=== PATIENT | male | born 1955 | race Caucasian/White ===

== ENCOUNTER 2017-08-14 17:23 | Emergency (ER) | payer MEDICARE, OTHER ==
[~2017-08-14] VITALS: Ht 182.9 cm; Wt 109.3 kg
[2017-08-14 17:31] VITALS: BP 160/111
--- NOTE | 2017-08-14 17:44 | NUR ---
PT WHEEL CHAIR ASSISTED BACK TO THE LOBBY
--- NOTE | 2017-08-14 18:30 | NUR ---
62/M BIB SELF C/O CHRONIC BL LEG WOUND & REDNESS, SWELLING & PAIN 10/10 APROXIMATELY 3 MONTHS WORSE THE LAST 6 DAYS .HX; HTN, STROKE, RT EYE PROSTHESIS, BACK SURGERY, APPENDECTOMY .RX; "6 MEDS CAN'T REMEMBER" DENIES N/V/D; SKIN IS PINK/WARM/DRY; AAOX4 WITH EVEN AND STEADY GAIT; LUNGS CLEAR BL; PATIENT STATES PAIN OF 10/10 AT THIS TIME; PATIENT POSITIONED FOR COMFORT; HOB ELEVATED; BEDRAILS UP X2; BED DOWN. ER MD MADE AWARE OF PT STATUS.
--- NOTE | 2017-08-14 19:15 | NUR ---
Pt report given to BROOKLYN COWART. Transfer of care at this time.
[2017-08-14] MEDS ORDERED: NACL 0.9% 1,000 ML IV ONE (19:55)
[2017-08-14] MEDS ORDERED: VANCOMYCIN 1,000 MG in DEXTROSE 5% 250 ML IV ONE (19:55)
[2017-08-14] MEDS ORDERED: PIPERACILLIN/TAZOBACTAM 3.375 GM in DEXTROSE 5% 50 ML IV ONE (19:55)
[2017-08-14] MEDS ORDERED: PIPERACILLIN/TAZOBACTAM 3.375 GM VIAL IV ONE (20:02)
[2017-08-14] MEDS ORDERED: VANCOMYCIN 1,000 MG VIAL ONE (20:02)
[2017-08-14 20:31] LABS: BASOPHILS # (AUTO) 0.1 K/uL (0.00-0.22); BASOPHILS % (AUTO) 1.2 % (0.0-2.0); EOSINOPHILS # (AUTO) 0.3 K/uL (0-0.4); EOSINOPHILS % (AUTO) 2.4 % (0.0-4.0); HEMATOCRIT 44.7 % (36-52); HEMOGLOBIN 14.9 g/dL (12.0-18.0); LYMPHOCYTES # (AUTO) 2.3 K/uL (2.0-11.5); LYMPHOCYTES % (AUTO) 19.8 % (20.5-51.1); MEAN CORPUSCULAR HEMOGLOBIN 28 pg (27-31); MEAN CORPUSCULAR HGB CONC 33 g/dL (33-37); MEAN CORPUSCULAR VOLUME 83 fL (80-94); MONOCYTES # (AUTO) 0.9 K/uL (0.8-1.0); MONOCYTES % (AUTO) 7.9 % (1.7-9.3); NEUTROPHILS % (AUTO) 68.7 % (42.2-75.2); PLATELET COUNT (AUTO) 367 K/uL (140-450); RED BLOOD CELL COUNT(AUTO) 5.38 MIL/uL (4.20-6.10); RED CELL DISTRIBUTION WIDTH 13.2 % (11.6-13.7); WHITE BLOOD COUNT (AUTO) 11.6 K/uL (4.8-10.8)
[2017-08-14] MEDS ORDERED: hydrALAZINE 20 MG/ML VIAL IVP ONE (20:40)
[2017-08-14 20:46] LABS: ANION GAP 14.6 (8-16); CARBON DIOXIDE 29.9 mmol/L (21-32); CREATININE 1.4 mg/dL (0.7-1.3); POTASSIUM 3.5 mmol/L (3.5-5.1)
[2017-08-14 20:52] LABS: ALBUMIN 3.8 g/dL (3.4-5.0); TOTAL BILIRUBIN 0.3 mg/dL (0.0-1.0)
--- NOTE | 2017-08-14 21:00 | NUR ---
Patient appears to be resting comfortably in bed. Vital Signs within normal limits. Respirations even and unlabored.
--- NOTE | 2017-08-14 21:20 | NUR ---
PT GIVEN URINAL
--- NOTE | 2017-08-14 21:31 | NUR ---
RX; "6 MEDS CAN'T REMEMBER"
--- NOTE | 2017-08-14 21:50 | NUR ---
PT UNABLE TO VOID AT THIS TIME, ER MD PICKARD MADE AWARE. NO NEW ORDERS RECEIVED
[2017-08-14] MEDS ORDERED: ACETAMINOPHEN 325 MG TAB PO PRN (22:30)
[2017-08-14] MEDS ORDERED: ONDANSETRON 4 MG/2 ML VIAL IVP PRN (22:30)
[2017-08-14] MEDS ORDERED: LORazepam 2 MG/ML VIAL IVP PRN (22:30)
[2017-08-14] MEDS ORDERED: HYDROcodone/APAP 5/325 MG 1 TAB TAB PO PRN (22:30)
[2017-08-14] MEDS ORDERED: VANCOMYCIN PER PHARMACY MC PRN (22:30)
[2017-08-14] MEDS ORDERED: cloNIDine 0.1 MG TAB PO PRN (22:40)
--- NOTE | 2017-08-14 23:00 | NUR ---
Patient will be admitted to care of [facility]. Admited to MS . Will go to room 112A. Belongings list completed. BEDSIDE Report to GE BARAHONA. IV SL AND PATENT
--- NOTE | 2017-08-14 23:10 | NUR ---
PT ARRIVED ON THE UNIT FROM ER VIA GURNEY, PT AMBULATED TO THE BATHROOM THEN TO BED, TOLERATED WELL, RECEIVED REPORT FROM ER NURSE WOJCIECH RN, IV TO R AC 20G, INTACT, PATENT, PT ON ROOM AIR NO SOB, PT HAS BLE CELLULITIS, WITH ONE OPEN WOUND TO THE RIGHT AND TWO TO THE LEFT LEG, INITIAL ASSESSMENT DONE, ALL SAFETY PRECAUTION MET, WILL CONTINUE TO MONITOR.
[2017-08-14 23:30] VITALS: BP 137/88
[2017-08-14] MEDS: HYDROcodone/APAP 5/325 MG 1 TAB TAB PO PRN (23:49)
[2017-08-14] MEDS: NACL 0.9% 1,000 ML IV SCH (23:50)
--- NOTE | 2017-08-14 23:50 | NUR ---
NEW BAG OF 1L NS IV FLUID ADMINISTERED TO PT AT 75ML/HR, INFUSING WELL, PT C/O OF PAIN 01/30 ON BLE LEG, PAIN MEDICATION GIVEN, PT TOLERATED WELL, NO DISTRESS NOTED, CALL LIGHT WITHIN REACH, WILL CONTINUE TO MONITOR. Addendum: 08/15/17 at 0453 by Gracy Butt RN PAIN MEDICATION NORCO 2 TAB 5/325 PER MD ORDER GIVEN
--- NOTE | 2017-08-15 01:00 | NUR ---
SECURITY CAME TO COMMUTATOR TESTER PT KNIFE TO KEEP AT SECURITY AND CONFIRM PT BIKE IN FRONT OF ER.
[2017-08-15 01:33] LABS: APPEARANCE,URINE CLEAR (CLEAR); BILIRUBIN,URINE NEGATIVE (NEGATIVE); BLOOD, URINE NEGATIVE (NEGATIVE); COLOR,URINE YELLOW (YELLOW); LEUKOCYTE ESTERASE ,URINE NEGATIVE (NEGATIVE); NITRITE, URINE NEGATIVE (NEGATIVE); UGLUCOSE NEGATIVE (NEGATIVE)
--- NOTE | 2017-08-15 03:45 | NUR ---
PT AMBULATED TO BATHROOM AND BACK TO BED, TOLERATED WELL, PT STABLE, NO DISTRESS NOTED, CALL LIGHT WITHIN REACH, WILL CONTINUE TO MONITOR.
--- NOTE | 2017-08-15 04:22 | NUR ---
CALLED RADIOLOGY REGARDING PT STAT ORDER OF US BLE VENOUS AND ARTERY, TALKED TO [employer]ODU[employer] OFFICER, WAS TOLD THAT THE GEAR TECHNICIAN TALKED TO AND THE ORDER IS NOT STAT BUT ROUTINE, AND IT WILL BE DONE LATER ON DURING THE MORNING.
[2017-08-15] MEDS ORDERED: CLINDAMYCIN 600 MG/4 ML VIAL ONE (04:31)
[2017-08-15] MEDS: CLINDAMYCIN 300 MG in DEXTROSE 5% 50 ML IV SCH ×3 (04:48→20:37)
--- NOTE | 2017-08-15 04:48 | NUR ---
IVPB CLEOCIN 300MG IN 50ML NS (D5W 50ML BAG WAS NOT AVAILABLE AT THIS TIME) STARTED RUNNING @ 100ML/HR, PT TOLERATED WELL, NO DISTRESS NOTED, CALL LIGHT WITHIN REACH, WILL CONTINUE TO MONITOR.
--- NOTE | 2017-08-15 05:18 | NUR ---
IVPB FINISHED INFUSING, IVF CONTINUED INFUSING AT 75ML/HR. INFUSING WELL, PT SLEEPING, NO DISTRESS NOTED,CALL LIGHT WITHIN REACH.
[2017-08-15 05:54] LABS: BASOPHILS # (AUTO) 0.1 K/uL (0.00-0.22); BASOPHILS % (AUTO) 1.1 % (0.0-2.0); EOSINOPHILS # (AUTO) 0.3 K/uL (0-0.4); EOSINOPHILS % (AUTO) 2.6 % (0.0-4.0); HEMATOCRIT 38.5 % (36-52); LYMPHOCYTES # (AUTO) 2.4 K/uL (2.0-11.5); LYMPHOCYTES % (AUTO) 22.9 % (20.5-51.1); MEAN CORPUSCULAR HEMOGLOBIN 28 pg (27-31); MEAN CORPUSCULAR HGB CONC 34 g/dL (33-37); MEAN CORPUSCULAR VOLUME 84 fL (80-94); MONOCYTES % (AUTO) 9.9 % (1.7-9.3); NEUTROPHILS # (AUTO) 6.7 K/uL (1.8-7.7); NEUTROPHILS % (AUTO) 63.5 % (42.2-75.2); PLATELET COUNT (AUTO) 302 K/uL (140-450); RED BLOOD CELL COUNT(AUTO) 4.61 MIL/uL (4.20-6.10); RED CELL DISTRIBUTION WIDTH 13.2 % (11.6-13.7); WHITE BLOOD COUNT (AUTO) 10.5 K/uL (4.8-10.8)
[2017-08-15 06:30] LABS: ANION GAP 11.6 (8-16); CREATININE 1.2 mg/dL (0.7-1.3); POTASSIUM 3.6 mmol/L (3.5-5.1); TOTAL BILIRUBIN 0.3 mg/dL (0.0-1.0)
--- NOTE | 2017-08-15 07:25 | NUR ---
ENDORSED PLAN OF CARE TO DAY SHIFT NURSE KY RN, PT STABLE, NO DISTRESS NOTED, CALL LIGHT WITHIN REACH.
--- NOTE | 2017-08-15 07:26 | NUR ---
RECEIVED REPORT FROM RISK SPECIALIST NURSE AT BEDSIDE FOR CONTINUITY OF CARE. PATIENT RESTING IN BED. IV TO R AC 20G, INTACT, ASYMPTOMATIC, AND PATENT, PT ON ROOM AIR, NO SOB OR SIGNS OF DISTRESS NOTED. PT HAS BLE CELLULITIS, WITH ONE OPEN WOUND TO THE RIGHT AND TWO TO THE LEFT LEG. SAFETY PRECAUTION IN PLACE, CALL LIGHT WITHIN REACH, WILL CONTINUE TO MONITOR PATIENT.
[2017-08-15 08:00] VITALS: BP 135/90
[2017-08-15] MEDS: HYDROcodone/APAP 5/325 MG 1 TAB TAB PO PRN ×3 (08:44→17:47)
--- NOTE | 2017-08-15 08:44 | NUR ---
PATIENT C/O PAIN 01/30 D/T LEG CELLULITIS. NORCO PRN ADMINISTERED. PATIENT TOLERATED IT WELL. SAFETY PRECAUTION IN PLACE, CALL LIGHT WITHIN REACH. WILL CONTINUE TO MONITOR PATIENT.
--- NOTE | 2017-08-15 08:55 | NUR ---
RIB SAWYER, HAO, IN TO ASSESS THE PATIENT FOR WOUND CONSULT. WILL AWAIT RESULTS.
--- NOTE | 2017-08-15 09:05 | NUR ---
PATIENT HAS BEEN SCREENED AND CATEGORIZED HIGH NUTRITION RISK. PATIENT WILL BE SEEN WITHIN 1-2 DAYS OF ADMISSION. 08/14/18-08/15/[address]
[2017-08-15] MEDS: ENOXAPARIN 40 MG/0.4 ML SYR SUBQ SCH (09:08)
--- NOTE | 2017-08-15 09:08 | NUR ---
WOUND CARE EVALUATION NOTE: REASON FOR EVALUATION BLE CELLULITIS SKIN ASSESSMENT DONE ON THIS 62 Y/O MALE PATIENT ADMITTED TO [facility], WITH INITIAL DIAGNOSIS OF BLE PAIN. PAST MEDICAL HISTORY INCLUDE HYPERTENSION,MD CVA. ALL ABOVE INFORMATION WAS OBTAINED FROM THE ADMISSION H&P AND PT. PT IS AAX4. LABS ARE WBC 10.5, H/H 13.0/38.5, GLUCOSE 119 AND ALBUMIN 3.0. PATIENT IS AAOX4. PT. REFUSED COMPLETED SKIN ASSESSMENT , ONLY WANTS LEGS TO BE CHECKED. BLE SKIN WARM TO TOUCH WNL, SKIN TURGOR GOOD. CAPILLARY REFILLED <3 SEC. TOENAILS ARE SHORT AND THICKENED, NO HAIR GROWTH, BILATERAL DORSAL PEDAL PULSES PRESENT. PT. ABLE TO AMBULATE TO BR. INITIAL PLAN OF CARE DISCUSSED WITH PRIMARY RN, DR. MENDIOLA AND PT. PT ABLE TO VERBALIZE UNDERSTANDING. INTEGUMENTARY: BILATERAL LOWER EXTREMITIES -DRYNESS LLE- CELLULITIS 3 WOUND SITES WITH LARGEST ON LATERAL SIDE 1X1X0.3 AND SMALLEST BELOW KNEE 0.5X0.5X0.2CM,SOCO WOUND ERYTHEMA, IRREGULAR WOUND EDGE, PAIN LEVEL 2/10 WHEN TOUCHED, BEARABLE. RLE- CELLULITIS 3X3X0.3CM WOUND BED LIGHT BROWN, MOIST, NO ODOR, WOUND EDGE WELL DEFINED. RECOMMENDATIONS: -CLEANSE BLE CELULITIS WITH NS, PAT DRY, APPLY SILVASORB GEL COVER WITH DRY DRESSING AND SECURE WITH TAPE , DRESSING CHANGE QOD AND PRN IF SOILING -ASSESS AND MONITOR SKIN CONDITION DURING POSITION CHANGE -OFFLOAD BILATERAL HEELS BY PLACING PILLOWS UNDER CALVES AT ALL TIMES, UNLESS OTHERWISE CONTRAINDICATED -PRESSURE REDISTRIBUTION SURFACE THERAPY -KEEP SKIN CLEAN AND DRY AT ALL TIMES. APPLY BODY LOTION TO DRYNESS AREA. RECOMMENDATIONS DISCUSSED WITH PRIMARY RN AND DR. MENDIOLA WILL FOLLOW UP PATIENT PRN. PLEASE CONTACT WOUND CARE NURSE FOR ANY QUESTIONS AND CHANGES IN SKIN CONDITION.
[2017-08-15] MEDS ORDERED: CLIN300C2 PO (09:21)
--- NOTE | 2017-08-15 09:30 | NUR ---
PATIENT SIGNED AUTHORIZATION OF DISCLOSURE OF HEALTH INFORMATION. AUTHORIZATION FAXED TO PATIENT'S [facility]. WILL AWAIT RESULT.
[2017-08-15] MEDS ORDERED: FUROSEMIDE 40 MG/4 ML VIAL IVP SCH (09:41)
[2017-08-15] MEDS: VANCOMYCIN 1GM/DEXT 5% PREMIX 200 ML IV SCH ×2 (09:57→21:16)
--- NOTE | 2017-08-15 09:58 | NUR ---
NEW IV INSERTED PER PATIENT'S REQUEST, IV ON L HAND 22G, ASYMPTOMATIC, INTACT, AND PATENT. ADMINISTERED LASIX IVP AND VANCOMYCIN IVPB. PATIENT TOLERATED THEM WELL. PATIENT RESTING, SAFETY PRECAUTION IN PLACE, CALL LIGHT WITHIN REACH, WILL CONTINUE TO MONITOR PATIENT. Addendum: 08/15/17 at 1150 by Jeremiah Almeida RN IV ON L HAND 20G.
--- NOTE | 2017-08-15 10:18 | NUR ---
FAXED INITIAL REVIEW TO [facility] [phone] PHONE JOHN [phone]
[2017-08-15] MEDS ORDERED: NACL 0.9% IRR 250 ML BOTTLE IR PRN (10:25)
--- NOTE | 2017-08-15 11:28 | NUR ---
VANCOMYCIN IVPB FINISHED. PATIENT RESTING IN BED, NO SIGNS OF DISTRESS OR SOB NOTED. DENIES PAIN AT THIS MOMENT. SAFETY PRECAUTION IN PLACE, CALL LIGHT WITHIN REACH, WILL CONTINUE TO MONITOR PATIENT.
[2017-08-15] MEDS: NACL 0.9% 1,000 ML IV SCH (11:48)
--- NOTE | 2017-08-15 12:55 | NUR ---
CLEOCIN 300G IN 5% DEXTROSE 50 ML ADMINISTERED ORDERED. PATIENT TOLERATING IT WELL. PATIENT ASLEEP IN BED. NO SIGNS OF SOB OR DISTRESS NOTED. SAFETY PRECAUTION IN PLACE, CALL LIGHT WITHIN REACH, WILL CONTINUE TO MONITOR PATIENT.
--- NOTE | 2017-08-15 13:26 | NUR ---
CLEOCIN 300G IN 5% DEXTROSE 50 ML IVPB FINISHED. PATIENT SLEEPING, NO SIGNS OF DISTRESS NOTED. SAFETY PRECAUTION IN PLACE, CALL LIGHT WITHIN REACH, WILL CONTINUE TO MONITOR PATIENT.
--- NOTE | 2017-08-15 13:34 | NUR ---
PT C/O 12/30 PAIN D/T BLE CELLULITIS. PRN NORCO ADMINISTERED. PATIENT TOLERATED IT WELL. PATIENT RESTING IN BED, NO SIGNS OF DISTRESS OR SOB NOTED. SAFETY PRECAUTION IN PLACE, CALL LIGHT WITHIN REACH, WILL CONTINUE TO MONITOR PATIENT.
--- NOTE | 2017-08-15 14:44 | NUR ---
08/15/2017 RD INITIAL ASSESSMENT COMPLETED PLEASE REFER TO NUTRITION ASSESSMENT UNDER CARE ACTIVITY FOR ESTIMATED NUTRITIONAL NEEDS. CONTINUE REGULAR DIET, DIETARY TO ADD HEALTH SHAKE TID FOR INCREASED ENERGY/KCAL NEEDS. RD TO FOLLOW-UP IN 2-3 DAYS PATIENT IS HIGH RISK. JUAN TERRY, RD
[2017-08-15 16:00] VITALS: BP 170/102
--- NOTE | 2017-08-15 16:04 | NUR ---
CALLED [facility] TO FOLLOW UP WITH PATIENT'S MED LIST PER DR. ROSENTHAL'S REQUEST. THEY STATED THAT THEY HAD FAXED THE MEDICATION LIST OVER. I REQUESTED THAT THEY FAX IT AGAIN. THEY SAID THAT THEY DID. I THEN SPOKE TO THEIR PHARMACIST, HARJINDER, WHO TOLD ME THAT THEIR FAX MACHINE HAS BEEN ACTING UP SO IT WAS NOT SENDING OUT PAPERWORK. HARJINDER THEN VERBALLY TOLD ME THE PATIENT'S LIST OF 4 MEDICATIONS OVER THE PHONE. IT WAS VERIFIED AND CONFIRMED. PATIENT'S MEDICATION RECONCILIATION DONE. PAGED DR. ROSENTHAL TO UPDATE HIM WITH THIS INFORMATION. AWAITING HIS CALL BACK.
[2017-08-15] MEDS ORDERED: OMEP20TC12 PO (16:09)
[2017-08-15] MEDS ORDERED: AMLO5TAB PO (16:09)
[2017-08-15] MEDS ORDERED: FURO-572 PO (16:09)
[2017-08-15] MEDS ORDERED: HYDR-3298 PO (16:09)
--- NOTE | 2017-08-15 16:13 | NUR ---
PT'S BP 137/82, HR 75. PATIENT RESTING IN BED, NO SIGNS OF DISTRESS OR SOB NOTED. SAFETY PRECAUTION IN PLACE, CALL LIGHT WITHIN REACH. WILL CONTINUE TO MONITOR PATIENT. Addendum: 08/15/17 at 1945 by Jeremiah Almeida RN ERROR OF TIME: [id number]
--- NOTE | 2017-08-15 16:43 | NUR ---
PATIENT'S BP 170/102, HR 82. CLONIDINE PRN ADMINISTERED D/T BP SYSTOLIC >160. PATIENT TOLERATED IT WELL AND IS RESTING IN BED. NO SIGNS OF DISTRESS. PATIENT C/O PAIN 12/30 D/T BLE CELLULITIS. WILL MEDICATE WHEN PRN NORCO IS DUE. SAFETY PRECAUTION IN PLACE, CALL LIGHT WITHIN REACH. WILL CONTINUE TO MONITOR PATIENT.
[2017-08-15 17:39] LABS: MAGNESIUM 1.9 mg/dL (1.8-2.4)
--- NOTE | 2017-08-15 17:47 | NUR ---
PT C/O 01/30 PAIN D/T BLE CELLULITIS. PRN NORCO ADMINISTERED. PATIENT TOLERATED IT WELL. PATIENT SITTING IN BED EATING DINNER. NO SIGNS OF DISTRESS OR SOB NOTED. SAFETY PRECAUTION IN PLACE, CALL LIGHT WITHIN REACH, WILL CONTINUE TO MONITOR PATIENT.
--- NOTE | 2017-08-15 19:13 | NUR ---
PATIENT REPORT GIVEN TO OCULAR CARE TECHNICIAN NURSE AT BEDSIDE FOR CONTINUITY OF CARE. PATIENT IN STABLE CONDITION.
--- NOTE | 2017-08-15 20:37 | NUR ---
DUE MEDICATION CLEOCIN 300MG IN 50ML D5W STARTED, AT 100ML/HR, INFUSING WELL, PT TOLERATED, PT SLEEPING, NO DISTRESS NOTED, CALL LIGHT WITHIN REACH.
--- NOTE | 2017-08-15 21:07 | NUR ---
CLEOCIN FINISHED INFUSING, PT STABLE, NO DISTRESS NOTED, IVF RESUMED AT 75ML/HR.
--- NOTE | 2017-08-15 21:16 | NUR ---
DUE MEDICATION VANCOCIN STARTED AT 135ML/HR INFUSING WELL, PT TOLERATED WELL, NO DISTRESS NOTED CALL LIGHT WITHIN REACH, WILL CONTINUE TO MONITOR.
--- NOTE | 2017-08-15 22:46 | NUR ---
VANCOCIN FINISHED INFUSING, IVF RESUMED INFUSING, PT STABLE, NO DISTRESS NOTED, CALL LIGHT WITHIN REACH, WILL CONTINUE TO MONITOR.
[2017-08-16] VITALS: BP 139/98
--- NOTE | 2017-08-16 00:01 | NUR ---
PT SLEEPING, NO DISTRESS NOTED, CALL LIGHT WITHIN REACH, WILL CONTINUE TO MONITOR.
[2017-08-16] MEDS: NACL 0.9% 1,000 ML IV SCH (01:08)
--- NOTE | 2017-08-16 02:41 | NUR ---
PT SLEEPING. NO DISTRESS NOTED, CALL LIGHT WITHIN REACH, WILL CONTINUE TO MONITOR.
[2017-08-16] MEDS: CLINDAMYCIN 300 MG in DEXTROSE 5% 50 ML IV SCH ×2 (05:26→13:45)
--- NOTE | 2017-08-16 05:26 | NUR ---
DUE MEDICATION MEDICATION CLEOCIN STARTED, PT TOLERATED WELL, NO DISTRESS NOTED, CALL LIGHT WITHIN REACH, WILL CONTINUE TO MONITOR.
--- NOTE | 2017-08-16 06:26 | NUR ---
CLEOCIN FINISHED INFUSING, PT STABLE, NO DISTRESS NOTED, CALL LIGHT WITHIN REACH, WILL CONTINUE TO MONITOR.
[2017-08-16] MEDS: HYDROcodone/APAP 5/325 MG 1 TAB TAB PO PRN ×2 (06:59→13:59)
--- NOTE | 2017-08-16 06:59 | NUR ---
PT C/O PAIN 8/ ON BLE, PAIN MEDICATION GIVEN PT TOLERATED WELL, NO DISTRESS NOTED, CALL LIGHT WITHIN REACH.
--- NOTE | 2017-08-16 07:28 | NUR ---
ENDORSED PLAN OF CARE TO DAY SHIFT NURSE MANOLO KEE, PT STABLE, NO DISTRESS NOTED, CALL LIGHT WITHIN REACH.
[2017-08-16 08:00] VITALS: BP 151/98
[2017-08-16] MEDS: ENOXAPARIN 40 MG/0.4 ML SYR SUBQ SCH (09:08)
[2017-08-16] MEDS: VANCOMYCIN 1GM/DEXT 5% PREMIX 200 ML IV SCH (10:25)
[2017-08-16 12:00] VITALS: BP 156/94
--- NOTE | 2017-08-16 14:15 | NUR ---
CLEOCIN 300 MG. IVPB DONE AT THIS TIME.
--- NOTE | 2017-08-16 14:40 | NUR ---
DR. ROSENTHAL CAME, INFORMED OF VS AT 0800 AND 1200. NO ORDER RECEIVED FOR HIGH BP. DR. ROSENTHAL SEEN PT..
[2017-08-16] MEDS ORDERED: FURO-570 PO (14:50)
--- NOTE | 2017-08-16 16:00 | NUR ---
IVF NS AT 75ML/HR STOPPED AT THIS TIME DUE TO PT. D/C HOME.
[2017-08-16] MEDS ORDERED: SULF-58 PO ×2 (16:05→16:06)
[2017-08-16 16:30] VITALS: BP 149/92
--- NOTE | 2017-08-16 17:10 | NUR ---
D/C HOME VIA WHEELCHAIR. AWAKE, ALERT, AND ORIENTED X4. SPEECH CLEAR. NO C/O PAIN. NO SOB, NOTED. IN STABLE CONDITION. BUS PASS PROVIDED. INFORMED CHARGE NURSE COLLIN SHELTON.
[2017-08-17] MEDS ORDERED: NACL 0.9% IRR 250 ML BOTTLE IR SCH (13:00)
== END 2017-08-16 17:10 | disposition home or self-care (01) ==
LOC: MED 17:23 → MTU 22:28
PROVIDERS: ADMIT Hospitalist; ATTEND Hospitalist
DX: L03.115 Cellulitis of right lower limb (principal); L03.116 Cellulitis of left lower limb; L97.919 Non-pressure chronic ulcer of unspecified part of right lower leg with unspecified severity; L97.929 Non-pressure chronic ulcer of unspecified part of left lower leg with unspecified severity; I10 Essential (primary) hypertension; E78.5 Hyperlipidemia, unspecified; I25.10 Atherosclerotic heart disease of native coronary artery without angina pectoris; Z86.73 Personal history of transient ischemic attack (TIA), and cerebral infarction without residual deficits
CPT/HCPCS: 36415; 71045; 80053; 80202; 81003; 83605; 83735; 83880; 85025; 87040; 87070; 87075; 87081; 87186; 87205; 93925; 93970; 96361; 96365; 96366; 96367; 96372; 96375; 99285; G0378; J0360; J1650; J1940; J2543; J3370; J3490; J7030; J7060; Q0092

== ENCOUNTER 2018-07-02 04:15 | Emergency (ER) | payer MEDICARE, OTHER ==
[~2018-07-02] VITALS: Ht 180.3 cm; Wt 90.7 kg
[~2018-07-02 04:15] MED LIST: AMLO5TAB PO; CLIN300C2 PO; FURO-570 PO; HYDR-3298 PO; OMEP20TC12 PO; SULF-58 PO
--- NOTE | 2018-07-02 04:19 | NUR ---
PT BIB [employer] TO BED 08.
[2018-07-02] MEDS ORDERED: cloNIDine 0.1 MG TAB PO ONE (04:20)
[2018-07-02 04:21] VITALS: BP 208/118
--- NOTE | 2018-07-02 04:25 | NUR ---
PT BIB [employer] FOR PREBOOK C/O HTN. BP IS CURRENTLY 208/118, PT DENIES CP, BLURRED VISION, DIZZYNESS, NAUSEA, OR VOMITING. PT HAS BLE NON-PITTING EDEMA AND EYRYTHEMA. ER MD NOTIFIED OF PT CONDITION. [employer] AT BEDSIDE, WILL CONTINUE TO MONITOR. MEDHX: HTN, MT X4, CVA, DENUCLEATED R EYE, BACK SURGERY, AND APENDECTOMY RX: UNABLE TO VERIFY
--- NOTE | 2018-07-02 04:50 | NUR ---
PT COMPLAINING OF DIZZYNESS AND NAUSEA. SAT PT BACK IN [facility]. BP IS CURRENTLY 208/134. ER NOTIFIED.
[2018-07-02] MEDS ORDERED: ONDANSETRON 4 MG ODT PO ONE (04:55)
[2018-07-02] MEDS ORDERED: hydrALAZINE 25 MG TAB PO SCH (04:55)
--- NOTE | 2018-07-02 05:27 | NUR ---
PATIENT BIB [employer]. PATIENT EXAMINED BY DR. PICKARD. PATIENT MEDICALLY CLEARED AND RELEASED IN CUSTODY IN STABLE CONDITION. ORIGINAL PRE-BOOK FORM GIVEN TO OFFICER.
[2018-07-02 05:28] VITALS: BP 178/108
[2018-07-02] MEDS ORDERED: hydrALAZINE 25 MG TAB ONE (05:28)
== END 2018-07-02 05:27 | disposition home or self-care (01) ==
LOC: MED 04:15
DX: I10 Essential (primary) hypertension (principal); Z86.73 Personal history of transient ischemic attack (TIA), and cerebral infarction without residual deficits; Z79.899 Other long term (current) drug therapy; Z02.89 Encounter for other administrative examinations
CPT/HCPCS: 99283; Q0162

== ENCOUNTER 2021-04-08 01:02 | Emergency (ER) | payer OTHER, MEDICAID ==
[~2021-04-08] VITALS: Ht 180.3 cm; Wt 99.8 kg
[~2021-04-08 01:02] MED LIST changes: +OMEP-278 PO; -OMEP20TC12 PO
[2021-04-08 01:20] VITALS: BP 180/110
--- NOTE | 2021-04-08 01:28 | NUR ---
PT GEOVANNA TRIPLETT. TAKEN TO BED 12
--- NOTE | 2021-04-08 02:37 | NUR ---
PT LAYING IN BED LOCKED IN LOWEST W X2 SIDERAILS UP FOR PATIENT SAFETY. PATIENT REPORTS 8/10 SHARP LOWER BACK PAIN X2 DAYS NON-RADIATING. PATIENT DENIES ANY TRAUMA, DENIES FEVER/CHILLS, DENIES ANY LOSS OF CONTROL OVER BOWEL OR BLADDER. PATIENT BP AT 183/99 ERMD AWARE. BREATHING EVEN AND UNLABORED. NAD NOTED, WILL CONTINUE TO MONITOR. PMH:HTN, "ALMOST BLIND", HEART ATTACKS, CVA NKA
[2021-04-08] MEDS ORDERED: KETOROLAC 15 MG/ML VIAL IVP ONE (03:10)
[2021-04-08 03:47] LABS: BASOPHILS # (AUTO) 0.1 K/uL (0.00-0.22); BASOPHILS % (AUTO) 0.6 % (0.0-2.0); EOSINOPHILS # (AUTO) 0.2 K/uL (0-0.4); EOSINOPHILS % (AUTO) 2.1 % (0.0-4.0); HEMATOCRIT 44.9 % (36-52); LYMPHOCYTES # (AUTO) 2.3 K/uL (2.0-11.5); LYMPHOCYTES % (AUTO) 23.9 % (20.5-51.1); MEAN CORPUSCULAR HEMOGLOBIN 30 pg (27-31); MEAN CORPUSCULAR HGB CONC 34 g/dL (33-37); MEAN CORPUSCULAR VOLUME 88.8 fL (80-94); MONOCYTES # (AUTO) 0.8 K/uL (0.8-1.0); MONOCYTES % (AUTO) 7.9 % (1.7-9.3); NEUTROPHILS # (AUTO) 6.3 K/uL (1.8-7.7); NEUTROPHILS % (AUTO) 65.5 % (42.2-75.2); PLATELET COUNT (AUTO) 281 K/uL (140-450); RED BLOOD CELL COUNT(AUTO) 5.05 MIL/uL (4.20-6.10); RED CELL DISTRIBUTION WIDTH 14.2 % (11.6-13.7); WHITE BLOOD COUNT (AUTO) 9.6 K/uL (4.8-10.8)
[2021-04-08 04:06] LABS: ALBUMIN 3.7 g/dL (3.4-5.0); ANION GAP 9.9 (8-16); ASPARTATE AMINOTRANSFERASE 20 U/L (15-37); CARBON DIOXIDE 32.8 mmol/L (21-32); CHLORIDE 107 mmol/L (98-107); CREATININE 1.5 mg/dL (0.6-1.3); GFR ARICAN-AMERICAN 61 mL/min (>90); GLUCOSE 108 mg/dL (74-106); POTASSIUM 3.7 mmol/L (3.5-5.1); SODIUM SERUM 146 mmol/L (136-145); TOTAL BILIRUBIN 0.3 mg/dL (0.0-1.0); UREA NITROGEN, BLOOD 23 mg/dL (7-18)
--- NOTE | 2021-04-08 04:21 | NUR ---
PATIENT TAKEN TO CT VIA WHEEL CHAIR.
--- NOTE | 2021-04-08 04:40 | NUR ---
PT RETURN FROM CT.
--- NOTE | 2021-04-08 05:12 | NUR ---
PT APPEARS TO BE RESTING W EYES CLOSED, HOB SLIGHTLY ELEVATED. BED LOCKED IN LOWEST POSITION W X2 SIDERAILS UP FOR PATIENT SAFETY. BREATHING EVEN AND UNLABORED. VSS. NAD NOTED, WILL CONTINUE TO MONITOR.
--- NOTE | 2021-04-08 06:53 | NUR ---
PT APPEARS TO BE RESTING W EYES CLOSED, SUPINE HOB SLIGHTLY ELEVATED. BED LOCKED IN LOWEST POSITION W X2 SIDERAILS UP FOR PATIENT SAFETY. BREATHING EVEN AND UNLABORED. VSS ON MONITOR. NAD NOTED, WILL CONTINUE TO MONITOR.
--- NOTE | 2021-04-08 07:18 | NUR ---
Pt report given to BROOKLYN PATHAK. Transfer of care at this time.
--- NOTE | 2021-04-08 07:18 | NUR ---
RECEIVED REPORT FROM BROOKLYN HINES. TRANSFER OF CARE AT THIS TIME.
--- NOTE | 2021-04-08 07:38 | NUR ---
PT SLEEPING, HOB LOWERED FOR COMFORT, VSS, WILL CONTINUE TO MONITOR.
--- NOTE | 2021-04-08 08:11 | NUR ---
PT EYES CLOSED, VISIBLE EQUAL RISE AND FALL OF CHEST, VSS, WILL CONTINUE TO MONITOR.
--- NOTE | 2021-04-08 08:22 | NUR ---
PT SLEEPING ON LEFT SIDE SUPINE, VSS, WILL CONTINUE TO MONITOR.
[2021-04-08] MEDS ORDERED: NAPR-54 PO (08:30)
[2021-04-08 09:14] VITALS: BP 167/86
== END 2021-04-08 09:14 | disposition home or self-care (01) ==
LOC: MED 01:02
DX: M54.50 Low back pain, unspecified (principal); G89.29 Other chronic pain; M48.061 Spinal stenosis, lumbar region without neurogenic claudication; R42 Dizziness and giddiness; I10 Essential (primary) hypertension; Z86.73 Personal history of transient ischemic attack (TIA), and cerebral infarction without residual deficits; Z79.899 Other long term (current) drug therapy; Z59.00 Homelessness unspecified
CPT/HCPCS: 36415; 70450; 71045; 72131; 80053; 84484; 85025; 85651; 86140; 93005; 96374; 99285; G0482; J1885; Q0092